=== PATIENT | male | born 2000 | race Caucasian/White ===

== ENCOUNTER 2020-12-11 18:16 | Emergency (ER) | payer OTHER ==
[~2020-12-11] VITALS: Ht 188 cm; Wt 99.8 kg
[2020-12-11 18:19] VITALS: BP 120/77
[2020-12-11] MEDS ORDERED: MOBIC15 MG PO (18:37)
== END 2020-12-11 18:48 | disposition home or self-care (01) ==
LOC: ER 18:16
DX: L02.216 Cutaneous abscess of umbilicus (principal)